=== PATIENT | female | born 1960 | race African-American/Black ===

== ENCOUNTER 2017-04-09 20:22 | Emergency (ER) | payer BC, MEDICAID ==
--- NOTE | ~2017-04-09 | CR63 ---
[facility] A Service of [facility] RADIOLOGY TEXT RESULTS PATIENT: DIGNA BRANU LOCATION: [facility] : 56 UNIT #: [id number] AGE: [address]: Lowell Maddox MD SEX: F ORDER DR: [id number] [facility] [address] [place], [place] [address] [id number] MR#: [id number] Acc #: [id number] NAME: DIGNA BRAUN. : 1960 SEX: F STUDY DATE/TIME: 04/09/2017 21:18 UNIT: [facility] ROOM: STUDY DESCRIPTION: CR Chest 2 View Attending Physician: Lowell Maddox M.D. Ordering Physician: Ed Jorje Sotelo M.D. Primary Care Physician: Lucas Corbett M.D. MEDICAL IMAGING REPORT This report is preliminary unless electronic signature is present EXAM Chest PA and lateral, 04/09/2017 HISTORY Fever, chest pain, cough and chest congestion for 2 weeks. Benign essential hypertension. FINDINGS The cardiac and mediastinal structures are stable compared with 07/06/2016. Extensive chronic-appearing interstitial infiltrates are again seen bilaterally characteristic of fibrosis. More focal airspace consolidation is seen in the lateral left upper lobe which appears new compared with 07/06/2016 which could represent superimposed pneumonia. Clinical correlation is recommended. There are no pleural effusions. No pneumothorax. IMPRESSION Chronic-appearing interstitial infiltrates bilaterally characteristic of fibrosis. Superimposed infiltrate lateral left upper lobe could reflect superimposed pneumonia. Dictated by... Iftikhar Cardona M.D. THIS IS AN ELECTRONICALLY VERIFIED REPORT Iftikhar Cardona M.D. at 04/10/2017 2:27 PM KRT/naomie TD: 04/09/2017 22:47 JOB #: [id number] [facility] A Service of [facility] RADIOLOGY TEXT RESULTS PATIENT: DIGNA BRAUN LOCATION: [facility] : 56 UNIT #: [id number] AGE: [address]: Lowell Maddox MD SEX: F ORDER DR: MEDICAL IMAGING REPORT Page 1 of 1 COPY
[~2017-04-09 20:22] MED LIST: ACETAMINOPHEN650 M4 PO; ALBUTEROL17 GM INH; ASPIRIN EC81 M1 PO; FLEXERIL10 MG PO; FLORASTOR250 M1 PO; HYCODAN60 ML 5MG/ PO; LEVAQUIN750 MG PO; LISINOPRIL-HCTZ1 T14 PO; LISINOPRIL-HCTZ1 T19 PO; LISINOPRIL20 MG PO; OMNICEF300 M1 PO; PREDNISONE PO; STERAPRED5 MG/DOSE1 PO; VIBRAMYCIN100 M1 PO; VICODIN 5/1 TAB 5/50 PO; ZITHROMAX PO
== END 2017-04-09 23:00 | disposition home or self-care (01) ==
LOC: CED 20:22
DX: J18.9 Pneumonia, unspecified organism (principal); D86.9 Sarcoidosis, unspecified; I10 Essential (primary) hypertension; Z88.0 Allergy status to penicillin; Z88.2 Allergy status to sulfonamides; Z88.5 Allergy status to narcotic agent
CPT/HCPCS: 71020; 99283